=== PATIENT | female | born 1965 | race Caucasian/White ===

== ENCOUNTER → 2024-12-17 10:39 | Outpatient (REF) | payer OTHER, SELFPAY ==
[2024-12-17 14:10] LABS: Mumps Virus IgG Positive; Varicella Zoster IgG (VZV) Positive
== END ==
LOC: OHS 10:39
PROVIDERS: ATTENDING PHYSICIAN Nurse Practitioner Family
DX: Z23 Encounter for immunization (principal)
CPT/HCPCS: 36415; 86480; 86706; 86735; 86762; 86765; 86787